=== PATIENT | female | born 1980 | race African-American/Black ===

== ENCOUNTER 2018-07-29 13:04 | Emergency (ER) | payer SELFPAY ==
[2018-07-29] MEDS ORDERED: hydrALAZINE 20 MG/ML VIAL ONE ×2 (13:55→15:09)
[2018-07-29 14:22] LABS: #Basophils 0.1 thou/uL (0.0-0.2); #Eosinphils 0.1 thou/uL (0.0-0.7); #Lymphocytes 1.7 thou/uL (1.20-3.40); #Monocytes 0.3 thou/uL (0.11-0.59); #Neutrophils 2.6 thou/uL (1.40-6.50); %Basophils 2.1 % (0.0-1.0); %Lymphocytes 34.8 % (21.0-51.0); %Monocytes 5.7 % (0.0-10.0); %Neutrophils 55.4 % (42.0-75.0); Hemoglobin 10.5 g/dL (12.0-16.0); Mean Corpuscular HGB CONC 32.4 g/dL (32.0-36.0); Mean Corpuscular Hemoglobin 30.2 pg (27.0-31.0); Mean Platelet Volume 7.2 fL (7.4-10.4); Platelet Count 308 thou/uL (130-400); RBC Distribution Width 12.4 % (11.5-14.5); Red Blood Cell (RBC) Count 3.48 mill/uL (4.20-5.40); White Blood Cell (WBC) Count 4.8 thou/uL (4.8-10.8)
[2018-07-29 14:27] LABS: BHCG - Serum Negative (NEGATIVE); Pregs Control Background? CLEAR/WHITE (CLR/WHITE); Pregs Control Bar Appear? YES (CONTROL BAR)
[2018-07-29 14:46] LABS: ALT (SGPT) 12 U/L (8-55); AST (SGOT) 17 U/L (5-34); Albumin 4.1 g/dL (3.5-5.0); Alkaline Phosphatase 52 U/L (40-150); Anion Gap 13 mmol/L (10-20); BUN (Urea Nitrogen) 8 mg/dL (7.0-18.7); Bilirubin, Total 0.6 mg/dL (0.2-1.2); CKMB 0.8 ng/mL (0-6.6); Calc. Creatinine Clearance 0 mL/min (70-130); Calcium 9.5 mg/dL (7.8-10.44); Carbon Dioxide 27 mmol/L (22-29); Chloride 104 mmol/L (98-107); Estimated GFR-MDRD 68; Globulin 3.4 g/dL (2.4-3.5); Glucose 85 mg/dL (70-105); Potassium 3.5 mmol/L (3.5-5.1); Protein, Total 7.5 g/dL (6.0-8.3); Sodium 140 mmol/L (136-145); Troponin I Less than 0.010 ng/mL (< 0.028)
[2018-07-29] MEDS ORDERED: Ketorolac Tromethamine 30 MG/ML VIAL ONE (15:50)
[2018-07-29] MEDS ORDERED: cloNIDine 0.1 MG TAB ONE (16:10)
[2018-07-29] MEDS ORDERED: Methocarbamol 500 MG TAB PO SCH (16:15)
--- NOTE | 2018-08-04 13:21 | EKG ---
Test Reason : Blood Pressure : / mmHG Vent. Rate : 075 BPM Atrial Rate : 075 BPM P-R Int : 144 ms QRS Dur : 078 ms QT Int : 392 ms P-R-T Axes : 026 023 016 degrees QTc Int : 437 ms Normal sinus rhythm Normal ECG Confirmed by ROCIO CABELLO ([id number]), editor continuity and script JAMEEL LOPEZ ([id number]) on 08/04/2018 1:21:08 PM Referred By: Confirmed By:ROCIO CABELLO
== END 2018-07-29 17:14 | disposition home or self-care (01) ==
LOC: ERS 13:04
DX: I10 Essential (primary) hypertension (principal); M54.5 Low back pain; E05.90 Thyrotoxicosis, unspecified without thyrotoxic crisis or storm; F32.9 Major depressive disorder, single episode, unspecified; Z79.899 Other long term (current) drug therapy
CPT/HCPCS: 80053; 82553; 84484; 84703; 85025; 93005; 96374; 96375; 96376; J0360; J1885

== ENCOUNTER 2018-07-29 18:49 | Emergency (ER) | payer SELFPAY ==
[2018-07-29] MEDS ORDERED: Lorazepam 2 MG/ML VIAL ONE (18:55)
--- NOTE | 2018-07-29 19:36 | RAD ---
AP PELVIS: HISTORY: Fall. COMPARISON: None. FINDINGS: No fracture. No malalignment. Mild narrowing of both hips. Mild narrowing of pubic symphysis. IMPRESSION: No acute displaced fracture or malalignment. POS: TONEY
== END 2018-07-29 21:52 | disposition home or self-care (01) ==
LOC: ERS 18:49
DX: S70.02XA Contusion of left hip, initial encounter (principal); E05.90 Thyrotoxicosis, unspecified without thyrotoxic crisis or storm; F32.9 Major depressive disorder, single episode, unspecified; I10 Essential (primary) hypertension; Z79.899 Other long term (current) drug therapy; M48.02 Spinal stenosis, cervical region; M48.061 Spinal stenosis, lumbar region without neurogenic claudication; W17.89XA Other fall from one level to another, initial encounter
CPT/HCPCS: 72170; 96372; J2060

== ENCOUNTER 2019-04-04 23:50 | Inpatient (IN) | payer SELFPAY ==
[2019-04-05 00:41] LABS: #Basophils 0.1 thou/uL (0.0-0.2); #Eosinphils 0.2 thou/uL (0.0-0.7); #Lymphocytes 2.9 thou/uL (1.20-3.40); #Monocytes 0.4 thou/uL (0.11-0.59); #Neutrophils 2.6 thou/uL (1.40-6.50); %Basophils 1.9 % (0.0-1.0); %Eosinophils 3.2 % (0.0-10.0); %Lymphocytes 46.6 % (21.0-51.0); %Monocytes 6.6 % (0.0-10.0); %Neutrophils 41.8 % (42.0-75.0); Hemoglobin 10.8 g/dL (12.0-16.0); Mean Corpuscular HGB CONC 32.1 g/dL (32.0-36.0); Mean Corpuscular Hemoglobin 29.7 pg (27.0-31.0); Mean Corpuscular Volume 92.3 fL (78.0-98.0); Mean Platelet Volume 7.4 fL (7.4-10.4); Platelet Count 284 thou/uL (130-400); RBC Distribution Width 12.1 % (11.5-14.5); Red Blood Cell (RBC) Count 3.65 mill/uL (4.20-5.40); White Blood Cell (WBC) Count 6.2 thou/uL (4.8-10.8)
[2019-04-05] MEDS ORDERED: Ketorolac Tromethamine 30 MG/ML VIAL ONE (00:54)
[2019-04-05 01:01] LABS: Pregnancy Test - Urine (BHCG) Negative (Negative); Pregu Control Background? CLEAR/WHITE (CLR/WHITE); Pregu Control Bar Appear? YES (CONTROL BAR)
[2019-04-05 01:02] LABS: Bilirubin Negative (Negative); Blood, Urine Negative (Negative); Clarity CLEAR (Clear); Glucose, Urine (Dipstick) Negative (Negative); Leukocyte Moderate (Negative); Nitrite Negative (Negative); Protein, Urine (Dipstick) Negative (Neg-Trace); Specific Gravity 1.016 (1.002-1.036); Specific Gravity, Urine 1.016 (1.002-1.036); pH, Urine 6.5 (5.0-9.0)
[2019-04-05 01:03] LABS: Bacteria/HPF None Seen HPF (None Seen); Hyaline Casts/LPF 0-3 HYALINE CAST LPF (0-3 Hyaline); RBC/HPF 0-3 HPF (0-3); Squamous Epithelial 0-3 HPF (0-3)
[2019-04-05 01:03] LABS: ALT (SGPT) 7 U/L (8-55); AST (SGOT) 13 U/L (5-34); Albumin 3.9 g/dL (3.5-5.0); Alkaline Phosphatase 54 U/L (40-150); Anion Gap 12 mmol/L (10-20); BUN (Urea Nitrogen) 13 mg/dL (7.0-18.7); Bilirubin, Total 0.7 mg/dL (0.2-1.2); Calc. Creatinine Clearance 0 mL/min (70-130); Calcium 9.9 mg/dL (7.8-10.44); Carbon Dioxide 24 mmol/L (22-29); Chloride 105 mmol/L (98-107); Estimated GFR-MDRD 69; Globulin 3.3 g/dL (2.4-3.5); Glucose 94 mg/dL (70-105); Protein, Total 7.2 g/dL (6.0-8.3); Sodium 137 mmol/L (136-145)
[2019-04-05] MEDS ORDERED: Morphine 4 MG/ML VIAL ONE (01:47)
[2019-04-05] MEDS ORDERED: hydrALAZINE 20 MG/ML VIAL ONE ×2 (01:48→04:21)
[2019-04-05] MEDS ORDERED: Nitroglycerin 2% Ointment 1 INCH/1 GM Packet ONE (02:38)
[2019-04-05] MEDS ORDERED: Diazepam 5 MG TAB ONE (03:05)
[2019-04-05 03:17] LABS: Amphetamine Not Detected (NotDetected); Barbiturates Screen Not Detected (NotDetected); Benzodiazepine Screen Not Detected (NotDetected); Cocaine Metabolite Screen Not Detected (NotDetected); Medtox Control Line Valid? VALID (VALID); Medtox Reader # READER 4; Methadone Not Detected (NotDetected); Methamphetamine Not Detected (NotDetected); Opiate Screen Not Detected (NotDetected); Oxycodone Screen Not Detected (NotDetected); Phencyclidine (PCP) Not Detected (NotDetected); THC/Cannabinoid Screen Detected (NotDetected); Tricyclic Screen Not Detected (NotDetected)
[2019-04-05] MEDS ORDERED: Ondansetron PF 4 MG/2 ML Vial IVP PRN ×2 (05:39→07:18)
[2019-04-05] MEDS ORDERED: HYDROcodone/Acetaminophen 5/325 mg Tablet PO PRN ×2 (05:39)
[2019-04-05] MEDS ORDERED: Sodium Chloride 0.9% 1,000 ML IV SCH (05:39)
[2019-04-05] MEDS ORDERED: Ondansetron ODT 4 MG TAB SL PRN (05:39)
[2019-04-05] MEDS ORDERED: Acetaminophen 325 MG TAB PO PRN (05:39)
[2019-04-05 05:42] VITALS: BMI 59.1
[2019-04-05] MEDS ORDERED: Diabetic Tussin 200 MG/10 ML UDCUP PO PRN (07:18)
[2019-04-05] MEDS ORDERED: Labetalol HCl 100 MG/20 ML VIAL SLOW IVP PRN (07:18)
[2019-04-05] MEDS ORDERED: Ondansetron ODT 4 MG TAB PO PRN (07:18)
[2019-04-05] MEDS ORDERED: Calcium Carbonate 500 MG ChewTAB PO PRN (07:18)
[2019-04-05] MEDS ORDERED: Senokot S 8.6-50 MG TAB PO PRN (07:18)
[2019-04-05] MEDS ORDERED: hydrALAZINE 20 MG/ML VIAL SLOW IVP PRN (07:18)
[2019-04-05] MEDS ORDERED: Zolpidem Tartrate 5 MG TAB PO PRN (07:18)
[2019-04-05] MEDS ORDERED: Loperamide HCl 2 MG CAP PO PRN (07:18)
[2019-04-05] MEDS ORDERED: Bisacodyl 10 MG SUPP PR PRN (07:18)
[2019-04-05] MEDS ORDERED: Loratadine 10 MG TAB PO PRN (07:18)
[2019-04-05] MEDS ORDERED: Sodium Chloride 0.65% Nasal 44 ML BOT EA NARE PRN (07:18)
[2019-04-05] MEDS ORDERED: Cepastat Lozenges 1 LOZ PO PRN (07:18)
[2019-04-05] MEDS ORDERED: Artificial Tears 18 DROP/0.9 ML EA EYE PRN (07:18)
[2019-04-05] MEDS ORDERED: Bisacodyl 5 MG TAB PO PRN (07:18)
--- NOTE | 2019-04-05 07:53 | RAD ---
XR Chest 1 View Portable HISTORY: Hypertension with headache and left arm tingling COMPARISON: None FINDINGS: The heart size is normal. The lungs are well expanded without focal areas of consolidation, pneumothorax or pleural effusions. IMPRESSION: No radiographic evidence of acute cardiopulmonary process.
[2019-04-05] MEDS ORDERED: Senokot 8.6 MG TAB PO SCH (09:00)
[2019-04-05] MEDS ORDERED: Non-Formulary Item 1 EACH (Ferrous Sulfate [Iron] 325 MG) PO SCH (09:00)
[2019-04-05] MEDS ORDERED: Non-Formulary Item 1 EACH (Lisinopril [Lisinopril] 40 MG) PO SCH (09:00)
--- NOTE | 2019-04-05 09:09 | CT ---
PRELIMINARY REPORT/[facility]/EMERGENCY AFTER HOURS PROCEDURE: EXAM: CT Head Without Contrast EXAM DATE/TIME: 04/05/2019 2:52 AM CLINICAL HISTORY: 38 years old, female; Patient HX: Patient reports high blood pressure with headache and left arm ting ling. She reports symptoms started a few days ago but worse today due to her back pain. PT also repor ts low back pain that has been worse today. She reports increased urination and inability to make it to the both room. PT reports back pain is sharp and stabbing a feels like a bone is stick out of right lower back. PT reports history of spinal stenosis, reports intermittent tingling in bilater al feet TECHNIQUE: Imaging protocol: Axial computed tomography images of the head without contrast. COMPARISON: No relevant prior studies available. FINDINGS: Brain: Normal. Ventricles: Normal. Bones/joints: Normal. Sinuses: Normal as visualized. Mastoid air cells: Normal as visualized. Soft tissues: Unremarkable. IMPRESSION: No acute intracranial abnormality. Thank you for allowing us to participate in the care of your patient. Dictated and Authenticated by: Claudio Palomares MD 04/05/2019 4:01 AM Central Time ([place] & [place]) FINAL REPORT CT HEAD NONCONTRAST: Agree with the preliminary interpretation provided above. No acute intracranial hemorrhage or mass effect. POS: VAL
[2019-04-05] MEDS: Ferrous Sulfate 325 MG TAB PO SCH (09:43)
[2019-04-05] MEDS: Atenolol 25 MG TAB PO SCH ×2 (09:43→20:05)
[2019-04-05] MEDS: Senokot 8.6 MG TAB PO SCH (09:43)
[2019-04-05] MEDS: Lisinopril 20 MG TAB PO SCH (09:43)
[2019-04-05] MEDS: Famotidine 20 MG TAB PO SCH ×2 (09:44→20:06)
[2019-04-05] MEDS: cefTRIAXone\\ROCEPHIN 1 GM in Sodium Chloride 0.9% 100 ML IVPB SCH (09:45)
[2019-04-05] MEDS: HYDROcodone/Acetaminophen 10/325 mg Tablet PO PRN ×3 (10:20→23:46)
--- NOTE | 2019-04-05 11:59 | HP ---
PRIMARY CARE PHYSICIAN: [facility]. REASON FOR ADMISSION: Acute on chronic low back pain, hypertensive urgency, and urinary tract infection. HISTORY OF PRESENT ILLNESS: This is a 38-year-old female, who has underlying morbid obesity and chronic low back pain, who presented to emergency room with complaint of worsening lower back pain. She was having predominantly lower back pain, which was both sided, but more on the right side, radiating to posterior aspect of buttock and leg. She was also sometimes feeling tingling and numbness sensation in feet. She also experienced urinary tract infection symptoms since 3 days with increasing frequency and dysuria. She denies any hematuria. She feels like the bone sticking to the right lower back and her pain intensity is about 10/10. She feels that because of that pain, her blood pressure was very high, even after she was taking medication. When she presented to emergency room, her blood pressure was 227/114. At that time, the patient was symptomatic and she was having headache without any focal neurological deficit. She had CT brain in the emergency room, which was unremarkable. She was given appropriate pain medication in the emergency room and her blood pressure was relatively better. Her urinalysis was also consistent with UTI. The patient was admitted as observation status to telemetry floor for better blood pressure control and pain control. When I saw at that time, the patient was lying on her back. She was pointing pain on lower back. She also pointing pain on the right side of the flank region. She denies any focal motor weakness or sensory symptoms at this point. When we tried to do MRI, but because of her weight, she was not able to fit in MRI and that is why we decided to do CT lumbar spine. Her chest x-ray was unremarkable. REVIEW OF SYSTEMS: CONSTITUTIONAL: Negative for weight loss or gain, ability to conduct usual activities. SKIN: Negative for rash, itching. EYES: Negative for double vision, pain. ENT/MOUTH: Negative for nose bleeding, neck stiffness, pain, tenderness. CARDIOVASCULAR: Negative for palpitations, dyspnea on exertion, orthopnea. RESPIRATORY: Negative for shortness of breath, wheezing, cough, hemoptysis, fever or night sweats. GASTROINTESTINAL: Negative for poor appetite, abdominal pain, heartburn, nausea, vomiting, constipation, or diarrhea. GENITOURINARY: Negative for urgency, frequency, dysuria, nocturia. MUSCULOSKELETAL: Negative for pain, swelling. NEUROLOGIC/PSYCHIATRIC: Negative for anxiety, depression. ALLERGY/IMMUNOLOGIC: Negative for skin rash, bleeding tendency. Please see my HPI for pertinent positives and negatives. All other review of systems reviewed and negative except as mentioned in HPI. Additional information, the patient denies any lifting heavy weight. The patient denies any unusual activity. The patient does not know what precipitated her pain. PAST MEDICAL HISTORY: Morbid obesity; cervical as well as lumbar spinal stenosis; hypertension; anemia, normocytic normochromic; chronic constipation; chronic low back pain. PAST SURGICAL HISTORY: Breast augmentation and x2. PAST PSYCHIATRIC HISTORY: Anxiety and depression. SOCIAL HISTORY: The patient lives at home. No history of tobacco, alcohol or illicit drug abuse. FAMILY HISTORY: No family history of coronary artery disease, stroke or cancer. ALLERGIES: NO KNOWN DRUG ALLERGIES. CURRENT HOME MEDICATION: 1. Atenolol 25 mg b.i.d. 2. Ferrous sulfate 325 mg daily. 3. Lisinopril 40 mg daily. 4. Senna 8.6 mg p.o. daily. EMERGENCY ROOM COURSE: The patient is given Valium 5 mg, hydralazine 10 mg x2, nitroglycerin patch, morphine 4 mg, Toradol 30 mg, and IV fluid. PHYSICAL EXAMINATION: VITAL SIGNS: On arrival and highest blood pressure is 227/114, currently blood pressure is 157/82, pulse 87, respiratory rate 18, temperature 98.1, saturation 100% on room air, and weight 146.5 kg. GENERAL: The patient is currently hypertensive and discomfort due to back pain. HEENT: Head, normocephalic and atraumatic. Eyes, pupils round and reactive to light. Extraocular muscle intact. ENT, oropharynx within normal limits. Moist mucous membranes. No oral lesion. No pharyngeal erythema. No exudate. NECK: Supple. No JVD. No thyromegaly. No carotid bruit. LUNGS: Clear to auscultation without any rhonchi or rales. CARDIAC: S1 and S2 regular. No murmur. No gallop. No rub. ABDOMEN: Morbid obesity limiting examination. Bowel sounds present. Nontender. Mild suprapubic discomfort noted. BACK: The patient does have back spasm. LOWER EXTREMITIES: No edema. Good distal pulsation. SKIN: No skin rash. HEMATOLOGICAL: No lymphadenopathy. NEUROLOGIC: The patient is alert and oriented x3. Cranial nerve 2 through 12 intact. Motor and sensation within normal limits. The patient does not have any focal neurological deficit other than back pain. SIGNIFICANT LABORATORY DATA: EKG is showing normal sinus rhythm, within normal limits. CT brain, based on my review, no acute intracranial process. Chest x-ray, based on my review, no acute cardiopulmonary process. CBC; WBC 6.2, hemoglobin 10.8, and platelet 284. BMP; sodium 137, potassium 4.0, chloride 105, carbon dioxide 24, anion gap 12, BUN 13, creatinine 1.07, glucose 94, and calcium 9.9. LFT; AST 13, ALT 7, alkaline phosphatase 54, and albumin 3.9. TSH 1.36. Cardiac enzyme negative x2. Urinalysis suggestive of UTI. test negative. Urine drug screen positive for cannabinoids. ASSESSMENT/PLAN: 1. Acute on chronic low back pain. The patient has exacerbation of chronic low back pain. She has chronic lumbar stenosis. At this point, clinical presentation is consistent with probable radiculopathy versus chronic lumbosacral disk disease. At this point, we tried to do MRI for better evaluation, but because of her weight, the patient is not able to fit in MRI machine and that is why I will try to get a CT lumbar spine without contrast. The patient does not have any cauda equina syndrome or any acute neurological deficit. At this point, she only needs pain control with morphine, Toradol, and muscle relaxant. Another possibility is that the patient has UTI symptoms and supersensitive to CVA area and that is why pyelonephritis is contributing to her worsening of pain as well. At this point, the patient is started on treatment for UTI. The patient will need PT, OT, and possible rehab screen. Depending upon CT scan finding, we will decide whether she needs any more evaluation or not. 2. Hypertensive urgency, most likely intractable. Pain is contributing to hypertensive urgency, and because of that, the patient is experiencing headache. Her CT brain is negative. Her blood pressure is well controlled after pain control. We will continue with atenolol 25 mg b.i.d., lisinopril 40 mg daily, and hydralazine, labetalol and clonidine on p.r.n. basis. 3. Anemia, normocytic normochromic. We will continue ferrous sulfate 325 mg p.o. daily. 4. Morbid obesity with body mass index of 59. Dietary education given. Weight loss education discussed. 5. Urinary tract infection with possible clinical pyelonephritis. We will continue with Rocephin 1 g q.24 hours, and we will follow up on urine culture results. 6. Cannabinoid abuse. Healthy lifestyle measure discussed with the patient. 7. Deep venous thrombosis prophylaxis not needed because we are expecting discharge soon. If the patient's condition does not improve, then we will consider changing to inpatient status depending upon clinical course. Job ID: [id number]
--- NOTE | 2019-04-05 11:59 | CT ---
CT lumbar spine without IV contrast INDICATION: Acute low back pain Comparison: None FINDINGS: Bones: No acute fracture is evident. There are bilateral pars defects at L5 with grade 1 anterolisthe sis. Disc spaces: There are mild marginal osteophytes involving the L4-5 and L5-S1 level consistent with d isc degenerative disease. Osseous central canal and neural foramina: Due to the broad-based bulge and grade 1 anterolisthesis a t L5-S1 there is mild suggested bilateral neural foraminal narrowing at L5-S1. No additional appreciable osseous central canal or neural foraminal narrowing is evident. Retroperitoneum and paravertebral soft tissues: There is a 3.4 similar hypodensity within the superio r pole left kidney that cannot be further characterized. This is incompletely included within the [id number]. IMPRESSION: 1. No acute fracture or subluxation. 2. Bilateral pars defects at L5 with grade 1 anterolisthesis and bilateral neural foraminal narrowing at L5-S1. 3. Ill-defined hypodensity within the left kidney requires further evaluation. Renal ultrasound is re commended for additional characterization. 4. Mild spondylosis of the lumbar spine
[2019-04-05] MEDS: Ketorolac Tromethamine 30 MG/ML VIAL IVP PRN (12:37)
[2019-04-05] MEDS: Morphine 4 MG/ML VIAL SLOW IVP PRN (13:52)
--- NOTE | 2019-04-05 14:01 | ULT ---
BILATERAL RENAL ULTRAASOUND COMPLETE: Date: 04/05/19 HISTORY: Acute urinary tract infection. FINDINGS: Evaluation of the right kidney is very suboptimal. A normal right kidney is not demonstrated. Left kidney measures 10.5 x 6.5 x 5.1 cm, but evaluation is also very limited due to gas. No overt hy dronephrosis. Bladder is not visualized because of gas. IMPRESSION: Very severely limited ultrasound examination. Right kidney and bladder are not imaged. No left renal hydronephrosis. POS: C
[2019-04-05] MEDS: tiZANidine HCl 4 MG TAB PO SCH (20:06)
[2019-04-06] MEDS: cloNIDine 0.1 MG TAB PO PRN
[2019-04-06] MEDS: HYDROcodone/Acetaminophen 10/325 mg Tablet PO PRN ×4 (04:10→18:17)
[2019-04-06] MEDS: Ketorolac Tromethamine 30 MG/ML VIAL IVP PRN ×2 (05:44→14:30)
[2019-04-06 05:52] LABS: #Basophils 0.1 thou/uL (0.0-0.2); #Eosinphils 0.2 thou/uL (0.0-0.7); #Monocytes 0.5 thou/uL (0.11-0.59); #Neutrophils 3.4 thou/uL (1.40-6.50); %Basophils 1.6 % (0.0-1.0); %Eosinophils 2.9 % (0.0-10.0); %Monocytes 7.8 % (0.0-10.0); %Neutrophils 55.7 % (42.0-75.0); Hemoglobin 10.5 g/dL (12.0-16.0); Mean Corpuscular Hemoglobin 31.1 pg (27.0-31.0); Mean Corpuscular Volume 91.4 fL (78.0-98.0); Mean Platelet Volume 7.6 fL (7.4-10.4); Platelet Count 236 thou/uL (130-400); Red Blood Cell (RBC) Count 3.39 mill/uL (4.20-5.40); White Blood Cell (WBC) Count 6.1 thou/uL (4.8-10.8)
[2019-04-06 06:24] LABS: Anion Gap 14 mmol/L (10-20); BUN (Urea Nitrogen) 16 mg/dL (7.0-18.7); Calc. Creatinine Clearance 218 mL/min (70-130); Carbon Dioxide 22 mmol/L (22-29); Chloride 103 mmol/L (98-107); Estimated GFR-MDRD 84; Glucose 83 mg/dL (70-105); Potassium 4.1 mmol/L (3.5-5.1); Sodium 135 mmol/L (136-145)
[2019-04-06] MEDS: Atenolol 25 MG TAB PO SCH ×2 (08:27→20:30)
[2019-04-06] MEDS: Lisinopril 20 MG TAB PO SCH (08:28)
[2019-04-06] MEDS: Senokot 8.6 MG TAB PO SCH (08:29)
[2019-04-06] MEDS: Famotidine 20 MG TAB PO SCH ×2 (08:29→20:30)
[2019-04-06] MEDS: tiZANidine HCl 4 MG TAB PO SCH ×2 (08:29→20:30)
[2019-04-06] MEDS: Ferrous Sulfate 325 MG TAB PO SCH (08:29)
[2019-04-06] MEDS: cefTRIAXone\\ROCEPHIN 1 GM in Sodium Chloride 0.9% 100 ML IVPB SCH (08:30)
--- NOTE | 2019-04-06 10:02 | PDOC.PN ---
- Subjective Encounter Start Date: 04/06/19 Encounter Start Time: 07:10 -: old records requested/rev pt does not see improvement, still has lot of back pain, no fever, she is not able to function due to pain Patient seen and examined. No overnight events - Objective Resuscitation Status - Order Detail: 04/05/19 07:15 Resuscitation Status Routine Resuscitation Status: FULL: Full Resuscitation MAR Reviewed: Yes Vital Signs & Weight: Vital Signs (12 hours) Temp Pulse Resp BP BP Pulse Ox 04/06/19 08:28 182/98 H 04/06/19 08:27 70 04/06/19 07:14 98.3 F 70 18 164/88 H 98 04/06/19 03:00 97.7 F 72 18 141/73 H 98 04/06/19 00:00 182/98 H 04/05/19 23:00 98.4 F 84 18 182/98 H 99 Weight Weight 336 lb I&O: 04/05/19 04/06/19 04/07/19 06:59 06:59 06:59 Intake Total 1900 Output Total 1000 Balance 900 Result Diagrams: 04/06/19 05:05 04/06/19 05:05 Radiology Reviewed by me: Yes (CT LS noted) Phys Exam - Physical Examination Constitutional: NAD HEENT: PERRLA, moist MMs, sclera anicteric Neck: no JVD, supple Respiratory: no wheezing, no rales, no rhonchi Cardiovascular: RRR, no significant murmur, no rub Gastrointestinal: soft, non-tender, no distention, positive bowel sounds morbid obesity+ Musculoskeletal: no edema, pulses present back pain+ Neurological: non-focal, normal sensation, moves all 4 limbs Lymphatic: no nodes Psychiatric: normal affect, A&O x 3 Skin: no rash, normal turgor Dx/Plan (1) Acute exacerbation of chronic low back pain Code(s): M54.5 - LOW BACK PAIN; G89.29 - OTHER CHRONIC PAIN Status: Acute (2) Hypertensive urgency Code(s): I16.0 - HYPERTENSIVE URGENCY Status: Acute (3) UTI (urinary tract infection) Status: Acute (4) Anemia, normocytic normochromic Code(s): D64.9 - ANEMIA, UNSPECIFIED Status: Chronic (5) Cannabis abuse Code(s): F12.10 - CANNABIS ABUSE, UNCOMPLICATED Status: Chronic (6) Hypertension Code(s): I10 - ESSENTIAL (PRIMARY) HYPERTENSION Status: Chronic (7) Morbid obesity with BMI of 50.0-59.9, adult Code(s): E66.01 - MORBID (SEVERE) OBESITY DUE TO EXCESS CALORIES; Z68.43 - BODY MASS INDEX (BMI) 50-59.9, ADULT Status: Chronic - Plan cont current plan of care, continue antibiotics, PT/OT * change to inpt as pt has no improvement in her pain, will need to be in hospital * follow culture, so far negative * continue pain control * medication reviewed as below * symptomatic treatment * continue rocephin for UTI. * adjust BP meds for BP control Review of Systems - Review of Systems Eyes: negative: Pain, Vision Change, Conjunctivae Inflammation, Eyelid Inflammation, Redness, Other ENT: negative: Ear Pain, Ear Discharge, Nose Pain, Nose Discharge, Nose Congestion, Mouth Pain, Mouth Swelling, Throat Pain, Throat Swelling, Other Respiratory: negative: Cough, Dry, Shortness of Breath, Hemoptysis, SOB with Excertion, Pleuritic Pain, Sputum, Wheezing Cardiovascular: negative: chest pain, palpitations, orthopnea, paroxysmal nocturnal dyspnea, edema, light headedness, other Gastrointestinal: negative: Nausea, Vomiting, Abdominal Pain, Diarrhea, Constipation, Melena, Hematochezia, Other Genitourinary: negative: Dysuria, Frequency, Incontinence, Hematuria, Retention , Other Musculoskeletal: Back Pain. negative: Neck Pain, Shoulder Pain, Arm Pain, Hand Pain, Leg Pain, Foot Pain, Other - Medications/Allergies Allergies/Adverse Reactions: Allergies Allergy/AdvReac Type Severity Reaction Status Date / Time No Known Allergies Allergy Verified 04/05/19 05:46 Medications: Current Medications Acetaminophen (Tylenol) 650 mg PO Q4H PRN PRN Reason: Headache/Fever/Mild Pain (1-3) Hydrocodone Bitart/Acetaminophen ([place] 10/325) 1 tab PO Q4H PRN PRN Reason: Moderate Pain (4-6) Last Admin: 04/06/19 08:39 Dose: 1 tab Artificial Tears (Tears Naturale) 2 drop EA EYE PRN PRN PRN Reason: Dry Eyes Atenolol (Tenormin) 25 mg PO BID BRIANA Last Admin: 04/06/19 08:27 Dose: 25 mg Bisacodyl (Dulcolax) 10 mg PO DAILYPRN PRN PRN Reason: Constipation Bisacodyl (Dulcolax) 10 mg IN DAILYPRN PRN PRN Reason: Constipation Calcium Carbonate (Tums) 1,000 mg PO Q4H PRN PRN Reason: Heartburn or Indigestion Clonidine (Catapres) 0.1 mg PO Q4H PRN PRN Reason: SBP GREATER THAN 160 Last Admin: 04/06/19 00:00 Dose: 0.1 mg Famotidine (Pepcid) 20 mg PO BID [facility] Last Admin: 04/06/19 08:29 Dose: 20 mg Ferrous Sulfate (Feosol) 325 mg PO DAILY [facility] Last Admin: 04/06/19 08:29 Dose: 325 mg Guaifenesin (Robitussin Sf) 200 mg PO Q4H PRN PRN Reason: Cough Hydralazine HCl (Apresoline) 10 mg SLOW IVP Q4H PRN PRN Reason: SBP > 180 and HR < 70 Ceftriaxone Sodium 1 gm/ (Sodium Chloride) 100 mls @ 200 mls/hr IVPB Q24HR [facility] Last Admin: 04/06/19 08:30 Dose: 100 mls Ketorolac Tromethamine (Toradol) 15 mg IVP Q6H PRN PRN Reason: Pain Stop: 04/10/19 07:19 Last Admin: 04/06/19 05:44 Dose: 15 mg Labetalol HCl (Normodyne) 20 mg SLOW IVP Q4H PRN PRN Reason: SBP > 180 and HR >/= 70 Lisinopril (Zestril) 40 mg PO DAILY [facility] Last Admin: 04/06/19 08:28 Dose: 40 mg Loperamide HCl (Imodium) 2 mg PO PRN PRN PRN Reason: Diarrhea/Loose Stools Loratadine (Claritin) 10 mg PO DAILYPRN PRN PRN Reason: Sinus Symptoms Morphine Sulfate (Morphine) 4 mg SLOW IVP Q4H PRN PRN Reason: Pain Last Admin: 04/05/19 13:52 Dose: 4 mg Ondansetron HCl (Zofran Odt) 4 mg PO Q6H PRN PRN Reason: Nausea/Vomiting Ondansetron HCl (Zofran) 4 mg IVP Q6H PRN PRN Reason: Nausea/Vomiting Senna (Senokot) 1 tab PO DAILY [facility] Last Admin: 04/06/19 08:29 Dose: 1 tab Senna/Docusate Sodium (Senokot S) 2 tab PO BID PRN PRN Reason: Constipation Sodium Chloride ([place] Nasal [place] 0.65%) 0 ml EA NARE QIDPRN PRN PRN Reason: Nasal Congestion Sodium Chloride (Flush - Normal Saline) 10 ml IVF Q12HR [facility] Last Admin: 04/06/19 08:30 Dose: 10 ml Sodium Chloride (Flush - Normal Saline) 10 ml IVF PRN PRN PRN Reason: Saline Flush Throat Lozenges (Cepastat Lozenges) 1 reggie PO Q2H PRN PRN Reason: Sore Throat Tizanidine HCl (Zanaflex) 4 mg PO BID [facility] Last Admin: 04/06/19 08:29 Dose: 4 mg Zolpidem Tartrate (Ambien) 5 mg PO HSPRN PRN PRN Reason: Insomnia
[2019-04-06] MEDS: Morphine 4 MG/ML VIAL SLOW IVP PRN ×2 (11:37→22:03)
[2019-04-06] MEDS: Acetaminophen 325 MG TAB PO PRN ×2 (16:52→20:34)
[2019-04-07] MEDS: Ketorolac Tromethamine 30 MG/ML VIAL IVP PRN (05:02)
[2019-04-07] MEDS: Lisinopril 20 MG TAB PO SCH (07:47)
[2019-04-07] MEDS: tiZANidine HCl 4 MG TAB PO SCH ×2 (07:48→20:09)
[2019-04-07] MEDS: Famotidine 20 MG TAB PO SCH ×2 (07:48→20:08)
[2019-04-07] MEDS: Atenolol 25 MG TAB PO SCH ×2 (07:48→20:08)
[2019-04-07] MEDS: Senokot 8.6 MG TAB PO SCH (07:48)
[2019-04-07] MEDS: Ferrous Sulfate 325 MG TAB PO SCH (07:48)
[2019-04-07] MEDS: cefTRIAXone\\ROCEPHIN 1 GM in Sodium Chloride 0.9% 100 ML IVPB SCH (07:49)
[2019-04-07] MEDS: Morphine 4 MG/ML VIAL SLOW IVP PRN (07:50)
[2019-04-07] MEDS: Acetaminophen 325 MG TAB PO PRN (07:50)
[2019-04-07] MEDS ORDERED: Ibuprofen 600 MG TAB PO PRN (10:18)
--- NOTE | 2019-04-07 10:21 | PDOC.PN ---
- Subjective Encounter Start Date: 04/07/19 Encounter Start Time: 09:40 pt's pain still not controlled, she is very hard stick and has no iv access, no fever - Objective Resuscitation Status - Order Detail: 04/05/19 07:15 Resuscitation Status Routine Resuscitation Status: FULL: Full Resuscitation MAR Reviewed: Yes Vital Signs & Weight: Vital Signs (12 hours) Temp Pulse Resp BP BP Pulse Ox 04/07/19 07:48 78 04/07/19 07:47 180/65 H 04/07/19 07:28 98.9 F 78 18 180/65 H 99 04/07/19 05:22 98.3 F 64 19 157/80 H 97 04/07/19 00:15 98 F 64 19 154/79 H 98 Weight Weight 336 lb I&O: 04/06/19 04/07/19 04/08/19 06:59 06:59 06:59 Intake Total 1900 1940 Output Total 1000 100 Balance 900 1840 Result Diagrams: 04/06/19 05:05 04/06/19 05:05 Phys Exam - Physical Examination Constitutional: NAD HEENT: PERRLA, moist MMs, sclera anicteric Neck: no JVD, supple Respiratory: no wheezing, no rales, no rhonchi Cardiovascular: RRR, no significant murmur, no rub Gastrointestinal: soft, non-tender, no distention, positive bowel sounds morbid obesity limiting exam Musculoskeletal: no edema, pulses present Neurological: non-focal, normal sensation, moves all 4 limbs Lymphatic: no nodes Psychiatric: normal affect, A&O x 3 Skin: no rash, normal turgor Dx/Plan (1) Acute exacerbation of chronic low back pain Code(s): M54.5 - LOW BACK PAIN; G89.29 - OTHER CHRONIC PAIN Status: Acute (2) Hypertensive urgency Code(s): I16.0 - HYPERTENSIVE URGENCY Status: Acute (3) UTI (urinary tract infection) Status: Acute (4) Anemia, normocytic normochromic Code(s): D64.9 - ANEMIA, UNSPECIFIED Status: Chronic (5) Cannabis abuse Code(s): F12.10 - CANNABIS ABUSE, UNCOMPLICATED Status: Chronic (6) Hypertension Code(s): I10 - ESSENTIAL (PRIMARY) HYPERTENSION Status: Chronic (7) Morbid obesity with BMI of 50.0-59.9, adult Code(s): E66.01 - MORBID (SEVERE) OBESITY DUE TO EXCESS CALORIES; Z68.43 - BODY MASS INDEX (BMI) 50-59.9, ADULT Status: Chronic - Plan cont current plan of care, continue antibiotics, PT/OT * DC Rocephin, so far culture negative * change to PO cipro for total 5 days * add amlodipine and HCTZ for uncontrolled BP * change to PO morphin and PO motrin PRN for pain . * medication reviewed as below * symptomatic treatment Review of Systems - Review of Systems ENT: negative: Ear Pain, Ear Discharge, Nose Pain, Nose Discharge, Nose Congestion, Mouth Pain, Mouth Swelling, Throat Pain, Throat Swelling, Other Respiratory: negative: Cough, Dry, Shortness of Breath, Hemoptysis, SOB with Excertion, Pleuritic Pain, Sputum, Wheezing Cardiovascular: negative: chest pain, palpitations, orthopnea, paroxysmal nocturnal dyspnea, edema, light headedness, other Gastrointestinal: negative: Nausea, Vomiting, Abdominal Pain, Diarrhea, Constipation, Melena, Hematochezia, Other Genitourinary: negative: Dysuria, Frequency, Incontinence, Hematuria, Retention , Other Musculoskeletal: Back Pain. negative: Neck Pain, Shoulder Pain, Arm Pain, Hand Pain, Leg Pain, Foot Pain, Other Skin: negative: Rash, Lesions, Cesar, Bruising, Other - Medications/Allergies Allergies/Adverse Reactions: Allergies Allergy/AdvReac Type Severity Reaction Status Date / Time No Known Allergies Allergy Verified 04/05/19 05:46 Medications: Current Medications Acetaminophen (Tylenol) 650 mg PO Q4H PRN PRN Reason: Headache/Fever/Mild Pain (1-3) Last Admin: 04/07/19 07:50 Dose: 650 mg Hydrocodone Bitart/Acetaminophen ([place] 10/325) 1 tab PO Q4H PRN PRN Reason: Moderate Pain (4-6) Last Admin: 04/06/19 18:17 Dose: 1 tab Artificial Tears (Tears Naturale) 2 drop EA EYE PRN PRN PRN Reason: Dry Eyes Atenolol (Tenormin) 25 mg PO BID BRIANA Last Admin: 04/07/19 07:48 Dose: 25 mg Bisacodyl (Dulcolax) 10 mg PO DAILYPRN PRN PRN Reason: Constipation Bisacodyl (Dulcolax) 10 mg NM DAILYPRN PRN PRN Reason: Constipation Calcium Carbonate (Tums) 1,000 mg PO Q4H PRN PRN Reason: Heartburn or Indigestion Clonidine (Catapres) 0.1 mg PO Q4H PRN PRN Reason: SBP GREATER THAN 160 Last Admin: 04/06/19 00:00 Dose: 0.1 mg Famotidine (Pepcid) 20 mg PO BID [facility] Last Admin: 04/07/19 07:48 Dose: 20 mg Ferrous Sulfate (Feosol) 325 mg PO DAILY [facility] Last Admin: 04/07/19 07:48 Dose: 325 mg Guaifenesin (Robitussin Sf) 200 mg PO Q4H PRN PRN Reason: Cough Hydralazine HCl (Apresoline) 10 mg SLOW IVP Q4H PRN PRN Reason: SBP > 180 and HR < 70 Last Admin: 04/06/19 14:29 Dose: 10 mg Ceftriaxone Sodium 1 gm/ (Sodium Chloride) 100 mls @ 200 mls/hr IVPB Q24HR [facility] Last Admin: 04/07/19 07:49 Dose: 100 mls Ketorolac Tromethamine (Toradol) 15 mg IVP Q6H PRN PRN Reason: Pain Stop: 04/10/19 07:19 Last Admin: 04/07/19 05:02 Dose: 15 mg Labetalol HCl (Normodyne) 20 mg SLOW IVP Q4H PRN PRN Reason: SBP > 180 and HR >/= 70 Lisinopril (Zestril) 40 mg PO DAILY [facility] Last Admin: 04/07/19 07:47 Dose: 40 mg Loperamide HCl (Imodium) 2 mg PO PRN PRN PRN Reason: Diarrhea/Loose Stools Loratadine (Claritin) 10 mg PO DAILYPRN PRN PRN Reason: Sinus Symptoms Morphine Sulfate (Morphine) 4 mg SLOW IVP Q4H PRN PRN Reason: Pain Last Admin: 04/07/19 07:50 Dose: 4 mg Ondansetron HCl (Zofran Odt) 4 mg PO Q6H PRN PRN Reason: Nausea/Vomiting Ondansetron HCl (Zofran) 4 mg IVP Q6H PRN PRN Reason: Nausea/Vomiting Last Admin: 04/06/19 16:56 Dose: 4 mg Senna (Senokot) 1 tab PO DAILY [facility] Last Admin: 04/07/19 07:48 Dose: 1 tab Senna/Docusate Sodium (Senokot S) 2 tab PO BID PRN PRN Reason: Constipation Sodium Chloride ([place]ith Nasal [place] 0.65%) 0 ml EA NARE QIDPRN PRN PRN Reason: Nasal Congestion Sodium Chloride (Flush - Normal Saline) 10 ml IVF Q12HR [facility] Last Admin: 04/07/19 07:48 Dose: 10 ml Sodium Chloride (Flush - Normal Saline) 10 ml IVF PRN PRN PRN Reason: Saline Flush Throat Lozenges (Cepastat Lozenges) 1 reggie PO Q2H PRN PRN Reason: Sore Throat Tizanidine HCl (Zanaflex) 4 mg PO BID [facility] Last Admin: 04/07/19 07:48 Dose: 4 mg Zolpidem Tartrate (Ambien) 5 mg PO HSPRN PRN PRN Reason: Insomnia
[2019-04-07] MEDS ORDERED: Hydrochlorothiazide 25 MG TAB PO SCH (10:30)
[2019-04-07] MEDS ORDERED: Gabapentin 300 MG CAP PO SCH (10:30)
[2019-04-07] MEDS ORDERED: Amlodipine 5 MG TAB PO SCH (10:30)
[2019-04-07] MEDS: HYDROcodone/Acetaminophen 10/325 mg Tablet PO PRN ×2 (12:01→17:59)
[2019-04-07] MEDS: Gabapentin 300 MG CAP PO SCH ×2 (14:09→20:09)
[2019-04-07] MEDS: Morphine IR 10 MG/5 ML UDCUP PO PRN ×2 (14:09→20:52)
[2019-04-07] MEDS: Cipro 250 MG TAB PO SCH (20:07)
[2019-04-07] MEDS: cloNIDine 0.1 MG TAB PO PRN (20:52)
[2019-04-08] MEDS: Morphine IR 10 MG/5 ML UDCUP PO PRN ×4 (01:02→20:40)
[2019-04-08] MEDS: HYDROcodone/Acetaminophen 10/325 mg Tablet PO PRN ×4 (05:44→22:51)
[2019-04-08] MEDS: Cipro 250 MG TAB PO SCH (05:44)
[2019-04-08] MEDS: Famotidine 20 MG TAB PO SCH ×2 (09:07→20:38)
[2019-04-08] MEDS: Ferrous Sulfate 325 MG TAB PO SCH (09:07)
[2019-04-08] MEDS: Hydrochlorothiazide 25 MG TAB PO SCH (09:08)
[2019-04-08] MEDS: Gabapentin 300 MG CAP PO SCH ×3 (09:08→20:38)
[2019-04-08] MEDS: Amlodipine 5 MG TAB PO SCH (09:08)
[2019-04-08] MEDS: tiZANidine HCl 4 MG TAB PO SCH ×2 (09:08→20:38)
[2019-04-08] MEDS: Lisinopril 20 MG TAB PO SCH (09:08)
[2019-04-08] MEDS: Senokot 8.6 MG TAB PO SCH (09:10)
[2019-04-08] MEDS: Atenolol 25 MG TAB PO SCH ×2 (09:10→20:38)
[2019-04-08] MEDS ORDERED: Ketorolac Tromethamine 30 MG/ML VIAL IVP SCH ×2 (13:30→18:00)
[2019-04-08] MEDS ORDERED: predniSONE 20 MG TAB PO SCH (13:30)
--- NOTE | 2019-04-08 13:35 | PDOC.PN ---
- Subjective Encounter Start Date: 04/08/19 Encounter Start Time: 13:30 Subjective: f/u for severe LBP on Morphine/Tylenol/Neurontin/[place]/Zanaflex. -: States pain is severe and unremitting, some urinary incontinence - Objective Resuscitation Status - Order Detail: 04/05/19 07:15 Resuscitation Status Routine Resuscitation Status: FULL: Full Resuscitation MAR Reviewed: Yes Vital Signs & Weight: Vital Signs (12 hours) Temp Pulse Resp BP Pulse Ox 04/08/19 09:10 66 04/08/19 09:08 66 04/08/19 07:58 98.5 F 66 20 136/66 99 04/08/19 04:00 97.9 F 61 20 168/78 H 95 Weight Weight 336 lb I&O: 04/07/19 04/08/19 04/09/19 06:59 06:59 06:59 Intake Total 1940 970 Output Total 100 475 Balance 1840 495 Result Diagrams: 04/06/19 05:05 04/06/19 05:05 Additional Labs: Microbiology 04/05/19 03:28 Urine clean catch Urine Culture - Final Laboratory Tests 04/05/19 04/05/19 00:32 00:50 Hgb 10.8 L U Cannabinoids Screen Detected H Radiology Reviewed by me: Yes (CT L-spine - pars defect L5-S1, no fx or subluxation) Phys Exam - Physical Examination tearful, sitting up HEENT: PERRLA, sclera anicteric, oral pharynx no lesions Neck: no nodes, no JVD, supple, full ROM Respiratory: no wheezing, no rales, no rhonchi, clear to auscultation bilateral S1, S2 Cardiovascular: RRR, no significant murmur, no rub, gallop morbidly obese Gastrointestinal: soft, no distention, positive bowel sounds Musculoskeletal: pulses present, edema present Neurological: normal sensation, moves all 4 limbs Psychiatric: A&O x 3 Skin: normal turgor, cap refill <2 seconds Dx/Plan (1) Acute exacerbation of chronic low back pain Code(s): M54.5 - LOW BACK PAIN; G89.29 - OTHER CHRONIC PAIN Status: Acute Comment: Unremitting pain despite Morphine/Neurontin/Zanaflex/Tylenol/[place], consult Anesthesia for consideration of [employer] DEPARTMENT pump and IV placement, consider Pain Clinic consult for options, add Toradol, Prednisone (2) Hypertensive urgency Code(s): I16.0 - HYPERTENSIVE URGENCY Status: Acute Comment: Resolved, likely labile due to pain, continue current BP regimen (3) UTI (urinary tract infection) Status: Acute Comment: Suspected though Ucx inconclusive, continue Cipro (4) Cannabis abuse Code(s): F12.10 - CANNABIS ABUSE, UNCOMPLICATED Status: Chronic (5) Hypertension Code(s): I10 - ESSENTIAL (PRIMARY) HYPERTENSION Status: Chronic Qualifiers: Hypertension type: essential hypertension Qualified Code(s): I10 - Essential (primary) hypertension Comment: Continue Norvasc, Atenolol, HCTZ (6) Morbid obesity with BMI of 50.0-59.9, adult Code(s): E66.01 - MORBID (SEVERE) OBESITY DUE TO EXCESS CALORIES; Z68.43 - BODY MASS INDEX (BMI) 50-59.9, ADULT Status: Chronic Comment: Weight loss strategy - Plan continue antibiotics, PT/OT, social insurance specialist, out of bed/ambulate, DVT proph w/ SCDs Stable overall -: Add Prednisone 40mg daily -: Consult Anesthesia service for [employer] OR DEPARTMENT, IV placement(difficult stick) -: Continue Morphine/Clymer/Zanaflex/Neurontin -: Consider consult for Pain Clinic, ?facet block * .
[2019-04-08] MEDS: Ciprofloxacin 500 MG TAB PO SCH (20:37)
[2019-04-08] MEDS: Ketorolac Tromethamine 30 MG/ML VIAL IVP SCH (20:39)
[2019-04-09] MEDS: Ketorolac Tromethamine 30 MG/ML VIAL IVP SCH ×4 (02:53→20:13)
[2019-04-09] MEDS: HYDROcodone/Acetaminophen 10/325 mg Tablet PO PRN ×4 (03:13→15:27)
[2019-04-09] MEDS: Morphine IR 10 MG/5 ML UDCUP PO PRN ×3 (04:03→16:48)
[2019-04-09] MEDS: Ciprofloxacin 500 MG TAB PO SCH ×2 (07:13→20:11)
[2019-04-09] MEDS: Senokot 8.6 MG TAB PO SCH (08:41)
[2019-04-09] MEDS: tiZANidine HCl 4 MG TAB PO SCH ×2 (08:41→20:12)
[2019-04-09] MEDS: Hydrochlorothiazide 25 MG TAB PO SCH (08:41)
[2019-04-09] MEDS: Famotidine 20 MG TAB PO SCH ×2 (08:42→20:11)
[2019-04-09] MEDS: Lisinopril 20 MG TAB PO SCH (08:42)
[2019-04-09] MEDS: predniSONE 20 MG TAB PO SCH (08:42)
[2019-04-09] MEDS: Ferrous Sulfate 325 MG TAB PO SCH (08:42)
[2019-04-09] MEDS: Gabapentin 300 MG CAP PO SCH ×2 (08:42→13:50)
[2019-04-09] MEDS: Amlodipine 5 MG TAB PO SCH (08:43)
[2019-04-09] MEDS: Atenolol 25 MG TAB PO SCH ×2 (08:43→20:11)
--- NOTE | 2019-04-09 15:31 | PDOC.PN ---
- Subjective Encounter Start Date: 04/09/19 Encounter Start Time: 15:29 Ms. Booth was seen today in follow-up of severe back pain. She continues to say if feels like something is sticking out in her back, and pitching her. She says her entire right leg is burning and that there is pain - Objective Resuscitation Status - Order Detail: 04/05/19 07:15 Resuscitation Status Routine Resuscitation Status: FULL: Full Resuscitation MAR Reviewed: Yes Vital Signs & Weight: Vital Signs (12 hours) Temp Pulse Resp BP BP Pulse Ox 04/09/19 08:43 71 134/71 04/09/19 08:42 134/71 04/09/19 08:10 98.7 F 71 16 134/71 90 L Weight Weight 336 lb I&O: 04/08/19 04/09/19 04/10/19 06:59 06:59 06:59 Intake Total 970 Output Total 475 Balance 495 Result Diagrams: 04/06/19 05:05 04/06/19 05:05 Phys Exam - Physical Examination HEENT: PERRLA Respiratory: no wheezing, no rales, no rhonchi Cardiovascular: RRR, no significant murmur, no rub Gastrointestinal: soft, non-tender, no distention, positive bowel sounds Musculoskeletal: no edema Neurological: normal sensation ? slight weakness in the right lower extremity as compared to the left ble to dorsiflex both feet, and Dx/Plan (1) Acute exacerbation of chronic low back pain Code(s): M54.5 - LOW BACK PAIN; G89.29 - OTHER CHRONIC PAIN Status: Acute Comment: Unremitting pain despite Morphine/Neurontin/Zanaflex/Tylenol/[place], consult Anesthesia for consideration of MUSHROOM PICKER pump and IV placement, consider Pain Clinic consult for options, add Toradol, Prednisone (2) UTI (urinary tract infection) Status: Acute Comment: Suspected though Ucx inconclusive, continue Cipro (3) Hypertension Code(s): I10 - ESSENTIAL (PRIMARY) HYPERTENSION Status: Chronic Qualifiers: Hypertension type: essential hypertension Qualified Code(s): I10 - Essential (primary) hypertension Comment: Continue Norvasc, Atenolol, HCTZ (4) Morbid obesity with BMI of 50.0-59.9, adult Code(s): E66.01 - MORBID (SEVERE) OBESITY DUE TO EXCESS CALORIES; Z68.43 - BODY MASS INDEX (BMI) 50-59.9, ADULT Status: Chronic Comment: Weight loss strategy - Plan * Acute on chronic low back pain- discussed with the Neurosurgery team application packager- considered CT Myelogram, but discussed with the radiologist and the Pars defect seen on CT scan will likely explain her symptoms. WIll plan conservative management and likely discharge home tomorrow- Discussed with the patient who understands. * HTN- blood pressure is better controlled. * UTI- resolved
[2019-04-10] MEDS: Morphine IR 10 MG/5 ML UDCUP PO PRN ×4 (01:00→17:30)
[2019-04-10] MEDS: Ciprofloxacin 500 MG TAB PO SCH (05:54)
[2019-04-10] MEDS: Ketorolac Tromethamine 10 MG TAB PO SCH ×3 (06:11→16:34)
[2019-04-10] MEDS: HYDROcodone/Acetaminophen 10/325 mg Tablet PO PRN ×2 (07:41→14:40)
[2019-04-10] MEDS: Amlodipine 5 MG TAB PO SCH (07:42)
[2019-04-10] MEDS: predniSONE 20 MG TAB PO SCH (07:43)
[2019-04-10] MEDS: Ferrous Sulfate 325 MG TAB PO SCH (07:43)
[2019-04-10] MEDS: Atenolol 25 MG TAB PO SCH (07:43)
[2019-04-10] MEDS: Senokot 8.6 MG TAB PO SCH (07:43)
[2019-04-10] MEDS: Hydrochlorothiazide 25 MG TAB PO SCH (07:43)
[2019-04-10] MEDS: Gabapentin 300 MG CAP PO SCH ×2 (07:44→14:41)
[2019-04-10] MEDS: Lisinopril 20 MG TAB PO SCH (07:44)
[2019-04-10] MEDS: tiZANidine HCl 4 MG TAB PO SCH (07:44)
[2019-04-10] MEDS: Famotidine 20 MG TAB PO SCH (07:44)
[2019-04-10] MEDS ORDERED: Ketorolac Tromethamine 10 MG TAB PO SCH (09:00)
[2019-04-10] MEDS ORDERED: Amlodipine 5 MG TAB PO SCH ×2 (09:00→11:15)
--- NOTE | 2019-04-10 14:28 | PDOC.PN ---
- Subjective Encounter Start Date: 04/10/19 Encounter Start Time: 14:27 Ms. Booth was seen today in follow-up of Severe back pain. She is still in pain. - Objective Resuscitation Status - Order Detail: 04/05/19 07:15 Resuscitation Status Routine Resuscitation Status: FULL: Full Resuscitation MAR Reviewed: Yes Vital Signs & Weight: Vital Signs (12 hours) Temp Pulse Resp BP BP BP Pulse Ox 04/10/19 11:50 167/98 H 04/10/19 11:00 98.2 F 59 L 16 167/98 H 94 L 04/10/19 10:09 183/100 H 04/10/19 07:44 183/100 H 04/10/19 07:43 59 L 183/100 H 04/10/19 07:42 59 L 183/100 H 04/10/19 07:35 98.4 F 59 L 16 183/100 H 97 Weight Weight 336 lb I&O: 04/09/19 04/10/19 04/11/19 06:59 06:59 06:59 Intake Total 162 Balance 162 Result Diagrams: 04/06/19 05:05 04/06/19 05:05 Phys Exam - Physical Examination HEENT: PERRLA Respiratory: no wheezing, no rales, no rhonchi, clear to auscultation bilateral Cardiovascular: RRR, no significant murmur, no rub Gastrointestinal: soft, non-tender, no distention, positive bowel sounds Musculoskeletal: no edema, pulses present Neurological: non-focal, normal sensation Dx/Plan (1) Acute exacerbation of chronic low back pain Code(s): M54.5 - LOW BACK PAIN; G89.29 - OTHER CHRONIC PAIN Status: Acute Comment: Unremitting pain despite Morphine/Neurontin/Zanaflex/Tylenol/[place], consult Anesthesia for consideration of CONVEYOR ATTENDANT pump and IV placement, consider Pain Clinic consult for options, add Toradol, Prednisone (2) UTI (urinary tract infection) Status: Acute Comment: Suspected though Ucx inconclusive, continue Cipro (3) Hypertension Code(s): I10 - ESSENTIAL (PRIMARY) HYPERTENSION Status: Chronic Qualifiers: Hypertension type: essential hypertension Qualified Code(s): I10 - Essential (primary) hypertension Comment: Continue Norvasc, Atenolol, HCTZ (4) Morbid obesity with BMI of 50.0-59.9, adult Code(s): E66.01 - MORBID (SEVERE) OBESITY DUE TO EXCESS CALORIES; Z68.43 - BODY MASS INDEX (BMI) 50-59.9, ADULT Status: Chronic Comment: Weight loss strategy - Plan * Acute on chronic back pain- discussed with patient * She is clinically stable for discharge * HTN- blood pressure is elevated- will increase the dose of Amlodipine .
[2019-04-10 16:07] VITALS: TEMP 98.8
[2019-04-10] MEDS: cloNIDine 0.1 MG TAB PO PRN (16:39)
[2019-04-10 17:31] VITALS: BP 164/88
--- NOTE | 2019-04-11 05:43 | DIS ---
DATE OF ADMISSION: 04/05/2019 DATE OF DISCHARGE: 04/10/2019 The patient does not have a primary care physician. DISCHARGE DISPOSITION: Home. PRIMARY DISCHARGE DIAGNOSES: 1. Pars defect, the vertebra with severe back pain. 2. Acute on chronic low back pain. 3. Morbid obesity. 4. Hypertensive urgency. 5. Hypertension, poorly controlled. 6. Depression. DISCHARGE MEDICATIONS: Include; 1. Percocet 5/325 one tablet q.6 as needed. 2. Zoloft 50 mg at bedtime. 3. Zanaflex 4 mg twice a day. 4. Lisinopril/hydrochlorothiazide 20/12.5 two tablets daily. 5. Neurontin 300 mg t.i.d. 6. Norvasc 10 mg daily. 7. Senna 8.6 mg daily. 8. Iron sulfate 325 mg daily. 9. Atenolol 25 mg twice a day. PROCEDURES DONE DURING THE ADMISSION: The patient had a CT scan of the brain, which showed no acute intracranial hemorrhage or mass effect. The patient had a CT scan of the lumbar spine. There was no fracture of subluxation. There were bilateral pars defects at L5 with a grade 1 anterolisthesis and bilateral neural foraminal narrowing at L5 and S1. There was some mild spondylosis of the lumbar spine. The patient also had a renal ultrasound showing it was severely limited exam due to body habitus. There was a right kidney and bladder that were not imaged. There was no hydronephrosis of the left kidney. CODE STATUS: Full code. ALLERGIES: NO KNOWN DRUG ALLERGIES. HOSPITAL COURSE: Ms. Booth is a pleasant 38-year-old female who presented to the emergency room complaining of severe back pain. She says the pain was primarily in the lower back, but then seemed to be more on the right side radiating to her buttock and her leg. She was evaluated in the emergency room. A lumbar spine CT was done in lieu of an MRI due to the patient's body habitus. It did not show any significant lesions other than the pars defect lesion at the L5 vertebra. This was likely the cause of her symptoms. She required several days of hospitalization in order to try to stabilize her pain. However, she continued to have pain despite IV medications including Toradol and morphine. She was counseled extensively on the need to try to limit narcotic medications. She was given dietary information with regard to obesity, as she does have a life-threatening obesity, as she has a BMI of 54.2, and she is 5 feet 6 inches, 336 pounds. There was consideration of getting a CT myelogram in lieu of the MRI, but after discussion with the radiologist, her symptoms are likely related to the pars defect and the CT myelogram would unlikely add any additional diagnostic information for her case as the plain CT is actually better for the pars defect than a CT myelogram. She did not have any symptoms of cauda equina syndrome. No saddle anesthesia or weakness in her lower extremities. Therefore, urgent neurosurgical consultation was not necessary. She was discharged home on 04/10/2019. Unfortunately, due to our unfunded status, we were not able to get inpatient rehab which would be ideal, but she will be sent home with exercise instructions. She was also given referrals to the [facility] clinics. Job ID: [id number]
[2019-04-13] MEDS ORDERED: Ibuprofen 600 MG TAB PO PRN (23:59)
== END 2019-04-10 18:28 | disposition home or self-care (01) | DRG 552 ==
LOC: ERS 23:50 → OBSVTOIN 04-05 05:19 → 2SW 04-05 05:19 → T4-B 04-06 11:29
PROVIDERS: ADMIT Hospitalist; ATTEND Hospitalist
DX: M47.816 Spondylosis without myelopathy or radiculopathy, lumbar region (principal); N39.0 Urinary tract infection, site not specified; Z68.43 Body mass index [BMI] 50.0-59.9, adult; M48.07 Spinal stenosis, lumbosacral region; I16.0 Hypertensive urgency; E66.01 Morbid (severe) obesity due to excess calories; D64.9 Anemia, unspecified; F41.9 Anxiety disorder, unspecified; F32.9 Major depressive disorder, single episode, unspecified; K59.09 Other constipation; M48.061 Spinal stenosis, lumbar region without neurogenic claudication; F12.10 Cannabis abuse, uncomplicated; I10 Essential (primary) hypertension; Z79.899 Other long term (current) drug therapy
CPT/HCPCS: 36415; 70450; 71045; 72131; 76770; 80048; 80053; 80306; 81003; 81015; 81025; 84443; 84484; 85025; 87086; 93005; 94760; 96361; 96374; 96375; 96376; J0360; J0696; J1610; J1885; J2270; J2405; J3490; J7512; Q0162

== ENCOUNTER 2021-04-16 16:29 | Observation (INO) | payer SELFPAY ==
[2021-04-16] MEDS ORDERED: HYDROcodone/Acetaminophen 10/325 mg Tablet ONE (17:40)
[2021-04-16] MEDS ORDERED: Atenolol 25 MG TAB PO SCH (18:00)
[2021-04-16] MEDS ORDERED: Metoprolol Tartrate 25 MG TAB ONE (18:19)
[2021-04-16 18:25] LABS: #Basophils 0.1 thou/uL (0.0-0.2); #Eosinphils 0.1 thou/uL (0.0-0.7); #Lymphocytes 2.2 thou/uL (1.20-3.40); #Monocytes 0.4 thou/uL (0.11-0.59); #Neutrophils 3.3 thou/uL (1.40-6.50); %Basophils 1.1 % (0.0-1.0); %Eosinophils 1.3 % (0.0-10.0); %Lymphocytes 36.3 % (21.0-51.0); %Neutrophils 54.3 % (42.0-75.0); Mean Corpuscular HGB CONC 33.3 g/dL (32.0-36.0); Mean Corpuscular Hemoglobin 30.3 pg (27.0-31.0); Mean Corpuscular Volume 91.2 fL (78.0-98.0); Mean Platelet Volume 7.3 fL (7.4-10.4); Platelet Count 310 thou/uL (130-400); RBC Distribution Width 12.7 % (11.5-14.5); Red Blood Cell (RBC) Count 3.96 mill/uL (4.20-5.40); White Blood Cell (WBC) Count 6.1 thou/uL (4.8-10.8)
[2021-04-16 18:44] LABS: ALT (SGPT) 8 U/L (8-55); AST (SGOT) 12 U/L (5-34); Albumin 4.2 g/dL (3.5-5.0); Alkaline Phosphatase 68 U/L (40-110); Anion Gap 15 mmol/L (10-20); BUN (Urea Nitrogen) 12 mg/dL (7.0-18.7); Bilirubin, Total 0.6 mg/dL (0.2-1.2); Calc. Creatinine Clearance 0 mL/min (70-130); Calcium 9.6 mg/dL (7.8-10.44); Carbon Dioxide 24 mmol/L (22-29); Chloride 99 mmol/L (98-107); Globulin 3.8 g/dL (2.4-3.5); Glucose 83 mg/dL (70-105); Potassium 3.8 mmol/L (3.5-5.1); Sodium 134 mmol/L (136-145)
[2021-04-16] MEDS ORDERED: Fentanyl 100 MCG/2 ML VIAL ONE (20:19)
[2021-04-16] MEDS ORDERED: Nitroglycerin 2% Ointment 1 INCH/1 GM Packet ONE (20:19)
[2021-04-16 23:07] LABS: Bilirubin Negative (Negative); Blood, Urine Negative (Negative); Clarity Clear (Clear); Glucose, Urine (Dipstick) Normal (Negative); Ketone, Urine Negative (Negative); Leukocyte 500 Leu/uL (Negative); Nitrite Negative (Negative); Protein, Urine (Dipstick) Negative (Neg-Trace); RBC/HPF 0-3 HPF (0-3); Specific Gravity, Urine 1.015 (1.002-1.036); Urobilinogen Normal mg/dL (Less than 2); WBC/HPF 21-50 HPF (0-3); pH, Urine 6.5 (5.0-9.0)
[2021-04-16 23:08] LABS: Bacteria/HPF 1+ HPF (None Seen)
[2021-04-17 00:17] VITALS: BMI 55.9
[2021-04-17] MEDS ORDERED: Senokot S 8.6-50 MG TAB PO PRN (00:24)
[2021-04-17] MEDS ORDERED: Ondansetron PF 4 MG/2 ML Vial IVP PRN (00:24)
[2021-04-17] MEDS ORDERED: Acetaminophen 325 MG TAB PO PRN (00:24)
[2021-04-17] MEDS ORDERED: hydrALAZINE 20 MG/ML VIAL SLOW IVP PRN ×2 (00:25→00:28)
[2021-04-17] MEDS ORDERED: Morphine 4 MG/ML VIAL SLOW IVP PRN (00:36)
[2021-04-17] MEDS ORDERED: cefTRIAXone\\ROCEPHIN 1 GM in Sodium Chloride 0.9% 100 ML IVPB SCH (01:00)
[2021-04-17] MEDS: HYDROcodone/Acetaminophen 10/325 mg Tablet PO PRN ×2 (01:31→05:58)
[2021-04-17] MEDS: traMADol HCl 50 MG TAB PO PRN ×3 (04:17→13:01)
[2021-04-17 05:07] LABS: #Basophils 0.1 thou/uL (0.0-0.2); #Eosinphils 0.1 thou/uL (0.0-0.7); #Lymphocytes 2.6 thou/uL (1.20-3.40); #Monocytes 0.5 thou/uL (0.11-0.59); #Neutrophils 2.5 thou/uL (1.40-6.50); %Basophils 1.5 % (0.0-1.0); %Eosinophils 1.8 % (0.0-10.0); %Lymphocytes 45.1 % (21.0-51.0); %Monocytes 9.2 % (0.0-10.0); %Neutrophils 42.4 % (42.0-75.0); Hemoglobin 10.1 g/dL (12.0-16.0); Mean Corpuscular Hemoglobin 29.2 pg (27.0-31.0); Mean Corpuscular Volume 91.1 fL (78.0-98.0); Mean Platelet Volume 7.5 fL (7.4-10.4); Platelet Count 272 thou/uL (130-400); RBC Distribution Width 12.6 % (11.5-14.5); Red Blood Cell (RBC) Count 3.46 mill/uL (4.20-5.40); White Blood Cell (WBC) Count 5.9 thou/uL (4.8-10.8)
[2021-04-17 05:34] LABS: Anion Gap 10 mmol/L (10-20); BUN (Urea Nitrogen) 12 mg/dL (7.0-18.7); Calc. Creatinine Clearance 184 mL/min (70-130); Calcium 9.4 mg/dL (7.8-10.44); Carbon Dioxide 29 mmol/L (22-29); Chloride 100 mmol/L (98-107); Glucose 91 mg/dL (70-105); Potassium 3.6 mmol/L (3.5-5.1); Sodium 135 mmol/L (136-145)
[2021-04-17] MEDS ORDERED: Amlodipine 10 MG TAB PO SCH (09:00)
[2021-04-17] MEDS ORDERED: Metoprolol Tartrate 25 MG TAB PO SCH (09:00)
[2021-04-17] MEDS ORDERED: Hydrochlorothiazide 25 MG TAB PO SCH (09:00)
[2021-04-17] MEDS ORDERED: Lorazepam 2 MG/ML VIAL SLOW IVP PRN (09:40)
[2021-04-17 11:59] VITALS: BP 168/107; TEMP 97.5
[2021-04-17 15:23] LABS: SARS-CoV-2 PCR NAA for Saliva Not Detected (NotDetected)
== END 2021-04-17 13:35 | disposition home or self-care (01) ==
LOC: ERS 16:29 → 2SW 22:13
PROVIDERS: ADMIT Internal Medicine; ATTEND Internal Medicine
DX: I16.0 Hypertensive urgency (principal); G89.29 Other chronic pain; M54.5 Low back pain; R20.0 Anesthesia of skin; R47.81 Slurred speech; R29.810 Facial weakness; H53.8 Other visual disturbances; R06.02 Shortness of breath; I10 Essential (primary) hypertension; E05.90 Thyrotoxicosis, unspecified without thyrotoxic crisis or storm; N39.0 Urinary tract infection, site not specified; R32 Unspecified urinary incontinence; Z79.899 Other long term (current) drug therapy; Z87.891 Personal history of nicotine dependence; Z88.8 Allergy status to other drugs, medicaments and biological substances; Z20.822 Contact with and (suspected) exposure to COVID-19
CPT/HCPCS: 36415; 70450; 80048; 80053; 81003; 81015; 84484; 85025; 87086; 93005; 96365; 96374; 96375; G0378; J0696; J3010; J3490; U0003; U0005

== ENCOUNTER 2021-08-09 11:56 | Emergency (ER) | payer MEDICAID, SELFPAY ==
[2021-08-09 13:16] LABS: #Eosinphils 0.1 thou/uL (0.0-0.7); #Monocytes 0.3 thou/uL (0.11-0.59); #Neutrophils 3.4 thou/uL (1.40-6.50); %Basophils 0.8 % (0.0-1.0); %Eosinophils 1.2 % (0.0-10.0); %Lymphocytes 33.8 % (21.0-51.0); %Monocytes 5.8 % (0.0-10.0); %Neutrophils 58.4 % (42.0-75.0); Hemoglobin 10.2 g/dL (12.0-16.0); Mean Corpuscular HGB CONC 32.1 g/dL (32.0-36.0); Mean Corpuscular Hemoglobin 29.5 pg (27.0-31.0); Mean Corpuscular Volume 91.9 fL (78.0-98.0); Mean Platelet Volume 7.1 fL (7.4-10.4); Platelet Count 315 thou/uL (130-400); RBC Distribution Width 12.6 % (11.5-14.5); Red Blood Cell (RBC) Count 3.46 mill/uL (4.20-5.40); White Blood Cell (WBC) Count 5.8 thou/uL (4.8-10.8)
[2021-08-09 13:37] LABS: ALT (SGPT) Less than 7 U/L (8-55); AST (SGOT) 11 U/L (5-34); Albumin 3.6 g/dL (3.5-5.0); Alkaline Phosphatase 50 U/L (40-110); Anion Gap 13 mmol/L (10-20); BUN (Urea Nitrogen) 13 mg/dL (7.0-18.7); Bilirubin, Total 0.7 mg/dL (0.2-1.2); CK (CPK) 64 U/L (29-168); Calc. Creatinine Clearance 0 mL/min (70-130); Calcium 9.2 mg/dL (7.8-10.44); Carbon Dioxide 25 mmol/L (22-29); Chloride 103 mmol/L (98-107); Globulin 3.2 g/dL (2.4-3.5); Glucose 82 mg/dL (70-105); Lipase 6 U/L (8-78); Potassium 4.3 mmol/L (3.5-5.1); Protein, Total 6.8 g/dL (6.0-8.3); Sodium 137 mmol/L (136-145)
[2021-08-09] MEDS ORDERED: Furosemide 40 MG/4 ML VIAL ONE (14:58)
[2021-08-09] MEDS ORDERED: Aspirin 325 MG TAB ONE (14:58)
[2021-08-09] MEDS ORDERED: Nitroglycerin 0.4 MG TAB 1 EACH ONE (14:58)
[2021-08-09] MEDS ORDERED: Acetaminophen 500 MG TAB ONE (14:58)
[2021-08-09] MEDS ORDERED: hydrALAZINE 20 MG/ML VIAL ONE (14:58)
[2021-08-09] MEDS ORDERED: Ibuprofen 200 MG TAB ONE (16:07)
== END 2021-08-09 16:25 | disposition home or self-care (01) ==
LOC: ERS 11:56
DX: I16.0 Hypertensive urgency (principal); I11.0 Hypertensive heart disease with heart failure; I50.9 Heart failure, unspecified; Z79.899 Other long term (current) drug therapy
CPT/HCPCS: 36415; 71045; 80053; 82550; 83690; 83880; 84484; 85025; 93005; 96374; 96375; J0360; J1940

== ENCOUNTER 2022-04-06 19:50 | Emergency (ER) | payer SELFPAY ==
[2022-04-06] MEDS ORDERED: Metoprolol Tartrate 25 MG TAB ONE (20:45)
[2022-04-06] MEDS ORDERED: Amlodipine 5 MG TAB ONE (20:45)
[2022-04-06] MEDS ORDERED: Acetaminophen 500 MG TAB ONE (20:45)
[2022-04-06] MEDS ORDERED: Ibuprofen 200 MG TAB ONE (20:52)
[2022-04-06] MEDS ORDERED: Hydrochlorothiazide 25 MG TAB PO SCH (21:00)
[2022-04-06 21:01] LABS: #Eosinphils 0.1 thou/uL (0.0-0.7); #Lymphocytes 0.9 thou/uL (1.20-3.40); #Monocytes 0.5 thou/uL (0.11-0.59); #Neutrophils 3.4 thou/uL (1.40-6.50); %Lymphocytes 18.3 % (21.0-51.0); %Neutrophils 69.7 % (42.0-75.0); Hemoglobin 8.8 g/dL (12.0-16.0); Mean Corpuscular HGB CONC 32.1 g/dL (32.0-36.0); Mean Corpuscular Hemoglobin 30.1 pg (27.0-31.0); Mean Corpuscular Volume 93.8 fL (78.0-98.0); Mean Platelet Volume 7.1 fL (7.4-10.4); Platelet Count 272 thou/uL (130-400); RBC Distribution Width 12.4 % (11.5-14.5); Red Blood Cell (RBC) Count 2.91 mill/uL (4.20-5.40); White Blood Cell (WBC) Count 4.9 thou/uL (4.8-10.8)
[2022-04-06 21:22] LABS: ALT (SGPT) 9 U/L (8-55); AST (SGOT) 10 U/L (5-34); Albumin 3.6 g/dL (3.5-5.0); Alkaline Phosphatase 56 U/L (40-110); Anion Gap 11 mmol/L (10-20); BUN (Urea Nitrogen) 14 mg/dL (7.0-18.7); Bilirubin, Total 0.4 mg/dL (0.2-1.2); Calc. Creatinine Clearance 0 mL/min (70-130); Carbon Dioxide 26 mmol/L (22-29); Chloride 105 mmol/L (98-107); Globulin 3.3 g/dL (2.4-3.5); Glucose 136 mg/dL (70-105); Potassium 3.6 mmol/L (3.5-5.1); Protein, Total 6.9 g/dL (6.0-8.3); Sodium 138 mmol/L (136-145)
== END 2022-04-06 22:52 | disposition home or self-care (01) ==
LOC: ERS 19:50
DX: I11.0 Hypertensive heart disease with heart failure (principal); I50.9 Heart failure, unspecified; Z79.899 Other long term (current) drug therapy
CPT/HCPCS: 36415; 71045; 80053; 84484; 85025; 93005

== ENCOUNTER 2024-05-27 10:53 | Emergency (ER) | payer BC, SELFPAY ==
[2024-05-27 11:43] LABS: #Basophils 0.03 10x3/uL (0.0-0.2); %Basophils 0.7 % (0.0-1.0); %Eosinophils 1.1 % (0.0-10.0); %Lymphocytes 27.8 % (21.0-51.0); %Monocytes 7.8 % (0.0-10.0); %Neutrophils 62.4 % (42.0-75.0); Hematocrit 33.2 % (36.0-47.0); Hemoglobin 10.8 g/dL (12.0-16.0); Mean Corpuscular HGB CONC 32.5 g/dL (32.0-36.0); Mean Corpuscular Volume 89.2 fL (78.0-98.0); Mean Platelet Volume 9.2 fL (7.4-10.4); Platelet Count 273 10x3/uL (130-400); RBC Distribution Width 13.6 % (11.5-14.5); Red Blood Cell (RBC) Count 3.72 mill/uL (4.20-5.40)
[2024-05-27 12:09] LABS: ALT (SGPT) 14 U/L (8-55); AST (SGOT) 18 U/L (5-34); Albumin 3.9 g/dL (3.5-5.0); Alkaline Phosphatase 62 U/L (40-110); Anion Gap 13 mmol/L (10-20); BUN (Urea Nitrogen) 15 mg/dL (7.0-18.7); Bilirubin, Total 0.8 mg/dL (0.2-1.2); Calc. Creatinine Clearance 0 mL/min (70-130); Calcium 9.9 mg/dL (7.8-10.44); Carbon Dioxide 23 mmol/L (22-29); Chloride 103 mmol/L (98-107); Estimated GFR 72; Globulin 3.8 g/dL (2.4-3.5); Glucose 92 mg/dL (70-105); Potassium 3.9 mmol/L (3.5-5.1); Protein, Total 7.7 g/dL (6.0-8.3); Sodium 135 mmol/L (136-145)
== END 2024-05-27 13:15 | disposition home or self-care (01) ==
LOC: ERS 10:53
DX: Z71.1 Person with feared health complaint in whom no diagnosis is made (principal); I11.0 Hypertensive heart disease with heart failure; I50.9 Heart failure, unspecified
CPT/HCPCS: 36415; 80053; 85025; 99283